=== PATIENT | male | born 1950 | race Caucasian/White ===

== ENCOUNTER → 2017-09-26 | Outpatient (CLI) | payer MEDICARE, OTHER | LOC: M ADAMS 09:15 | DX: R91.8 Other nonspecific abnormal finding of lung field (principal) | CPT/HCPCS: 71046 ==

== ENCOUNTER → 2017-10-10 | Outpatient (CLI) | payer MEDICARE | LOC: M ADAMS 09:27 | DX: R06.02 Shortness of breath (principal); J90 Pleural effusion, not elsewhere classified ==

== ENCOUNTER → 2017-10-10 | Outpatient (CLI) | payer MEDICARE ==
[~2017-10-10] MED LIST: ISOVUE-370 76% 100ML VIAL (Q9967) As Ordered
[2017-10-10 12:23] LABS: ALBUMIN 3.7 GM/DL (3.2-5.2); ALKALINE PHOSPHATASE 104 U/L (45-117); ALT/SGPT 30 U/L (12-78); ANION GAP 9 MEQ/L (8-16); AST/SGOT 16 U/L (7-37); BILIRUBIN,TOTAL 0.5 MG/DL (0.2-1.0); BLOOD UREA NITROGEN 13 MG/DL (7-18); CALCIUM LEVEL 9.1 MG/DL (8.8-10.2); CARBON DIOXIDE LEVEL 29 MEQ/L (21-32); CHLORIDE LEVEL 107 MEQ/L (98-107); CREATININE FOR GFR 0.67 MG/DL (0.70-1.30); FREE T4 0.85 NG/DL (0.76-1.46); GLOMERULAR FILTRATION RATE > 60.0 (>49); GLUCOSE, FASTING 109 MG/DL (70-100); POTASSIUM SERUM 4.1 MEQ/L (3.5-5.1); SODIUM LEVEL 145 MEQ/L (136-145); THYROID STIMULATING HORMONE 0.656 uIU/ML (0.358-3.740); TOTAL PROTEIN 7.4 GM/DL (6.4-8.2)
[2017-10-10 12:51] LABS: BASO % 0.3 % (0.0-1.0); EOS # 0.4 10^3/uL (0.0-0.50); HEMATOCRIT 47.1 % (42.0-52.0); HEMOGLOBIN 15.1 g/dl (13.5-17.5); IMMATURE GRANULOCYTE % 0.3 % (0-3.0); LYMPH # 2.4 10^3/uL (1.5-4.5); LYMPH % 39.1 % (24.0-44.0); MEAN CORPUSCULAR HEMOGLOBIN 30.2 pg (27.0-33.0); MEAN CORPUSCULAR HGB CONC 32.1 g/dl (32.0-36.5); MEAN CORPUSCULAR VOLUME 94.2 fl (80.0-96.0); MONO # 0.4 10^3/uL (0.0-0.8); MONO % 6.8 % (0.0-5.0); NEUTROPHILS % 47.5 % (36.0-66.0); PLATELET COUNT, AUTOMATED 220 10^3/uL (150-450); RED CELL DISTRIBUTION WIDTH 12.6 % (11.5-14.5); WHITE BLOOD COUNT 6.2 10^3/uL (4.0-10.0)
== END ==
LOC: M LAB 10:59
DX: R06.02 Shortness of breath (principal); J90 Pleural effusion, not elsewhere classified
CPT/HCPCS: Q9967

== ENCOUNTER 2017-10-21 22:11 | Inpatient (IN) | payer MEDICARE ==
[2017-10-21] MEDS: NS 1,000 ML IV (23:30)
[2017-10-21 23:31] LABS: BASO % 0.2 % (0.0-1.0); EOS # 0.1 10^3/uL (0.0-0.50); EOS % 0.6 % (0.0-3.0); HEMATOCRIT 43.7 % (42.0-52.0); HEMOGLOBIN 13.9 g/dl (13.5-17.5); IMMATURE GRANULOCYTE % 0.6 % (0-3.0); LYMPH % 15.2 % (24.0-44.0); MEAN CORPUSCULAR HEMOGLOBIN 30.2 pg (27.0-33.0); MEAN CORPUSCULAR HGB CONC 31.8 g/dl (32.0-36.5); MONO # 1.2 10^3/uL (0.0-0.8); NEUTROPHILS # 15.1 10^3/uL (1.8-7.7); NEUTROPHILS % 77.4 % (36.0-66.0); PLATELET COUNT, AUTOMATED 317 10^3/uL (150-450); RED CELL DISTRIBUTION WIDTH 12.5 % (11.5-14.5); WHITE BLOOD COUNT 19.5 10^3/uL (4.0-10.0)
[2017-10-21 23:35] LABS: INR 0.96; PROTHROMBIN TIME 12.9 SECONDS (12.1-14.4)
[2017-10-21 23:43] LABS: ALBUMIN 3.6 GM/DL (3.2-5.2); ALBUMIN/GLOBULIN RATIO 0.92 (1.00-1.93); ALKALINE PHOSPHATASE 92 U/L (45-117); ALT/SGPT 24 U/L (12-78); ANION GAP 7 MEQ/L (8-16); AST/SGOT 13 U/L (7-37); BILIRUBIN,DIRECT 0.1 MG/DL (0.0-0.2); BILIRUBIN,TOTAL 0.5 MG/DL (0.2-1.0); BLOOD UREA NITROGEN 20 MG/DL (7-18); CARBON DIOXIDE LEVEL 26 MEQ/L (21-32); CHLORIDE LEVEL 106 MEQ/L (98-107); CPK CREATINE PHOSPHOKINASE 58 U/L (39-308); CREATININE FOR GFR 1.07 MG/DL (0.70-1.30); GLOMERULAR FILTRATION RATE > 60.0 (>49); GLUCOSE, FASTING 165 MG/DL (70-100); POTASSIUM SERUM 4.1 MEQ/L (3.5-5.1); SODIUM LEVEL 139 MEQ/L (136-145); TOTAL PROTEIN 7.5 GM/DL (6.4-8.2); TROPONIN I < 0.02 NG/ML (< 0.10)
[2017-10-21 23:49] LABS: CK-MB VALUE MASS < 1.0 NG/ML (<3.6); MB/CK RELATIVE INDEX 1.72 (< OR =4); THYROID STIMULATING HORMONE 0.938 uIU/ML (0.358-3.740)
[2017-10-22 00:35] LABS: ABG BASE EXCESS -3.3 (-2.0-2.0); ABG HCO3 21.7 MEQ/L (22.0-26.0); ABG O2 SATURATION 99.5 % (95.0-99.0); ABG PARTIAL PRESSURE CO2 38.8 mmHg (35.0-45.0); ABG PARTIAL PRESSURE O2 196.9 mmHg (75.0-100.0); ABG STANDARD HCO3 21.8 MEQ/L (22.0-26.0); ABG TOTAL CO2 22.9 MEQ/L (23.0-31.0); ABG pH (ARTERIAL) 7.365 UNITS (7.350-7.450)
[2017-10-22 00:38] LABS: LACTIC ACID SEPSIS PROTOCOL 1.9 MMOL/L (0.4-2.0)
[2017-10-22] MEDS ORDERED: ISOVUE-370 76% 100ML VIAL (Q9967) As Ordered (00:56)
[2017-10-22 01:30] LABS: CK-MB VALUE MASS < 1.0 NG/ML (<3.6); CPK CREATINE PHOSPHOKINASE 46 U/L (39-308); MB/CK RELATIVE INDEX 2.17 (< OR =4); TROPONIN I < 0.02 NG/ML (< 0.10)
[2017-10-22 03:57] LABS: BASO % 0.2 % (0.0-1.0); EOS % 0.2 % (0.0-3.0); HEMATOCRIT 41.4 % (42.0-52.0); HEMOGLOBIN 13.2 g/dl (13.5-17.5); IMMATURE GRANULOCYTE % 0.5 % (0-3.0); LYMPH # 2.3 10^3/uL (1.5-4.5); LYMPH % 18.9 % (24.0-44.0); MEAN CORPUSCULAR HEMOGLOBIN 30.2 pg (27.0-33.0); MEAN CORPUSCULAR HGB CONC 31.9 g/dl (32.0-36.5); MEAN CORPUSCULAR VOLUME 94.7 fl (80.0-96.0); MONO # 0.6 10^3/uL (0.0-0.8); MONO % 5.3 % (0.0-5.0); NEUTROPHILS # 9.1 10^3/uL (1.8-7.7); NEUTROPHILS % 74.9 % (36.0-66.0); PLATELET COUNT, AUTOMATED 244 10^3/uL (150-450); RED BLOOD COUNT 4.37 10^6/uL (4.30-6.10); RED CELL DISTRIBUTION WIDTH 12.7 % (11.5-14.5); WHITE BLOOD COUNT 12.2 10^3/uL (4.0-10.0)
[2017-10-22] MEDS ORDERED: fentaNYL 100 MCG/2 ML INJECTION (J3010) As Ordered (04:09)
[2017-10-22] MEDS ORDERED: MIDAZOLAM INJ 2 MG/2 ML VIAL (J2250) As Ordered (04:10)
[2017-10-22] MEDS ORDERED: LIDOCAINE 1% MDV 20ML VIAL As Ordered (04:30)
[2017-10-22] MEDS: LIDOCAINE 1% MDV 20ML VIAL SC (04:30)
[2017-10-22] MEDS: LR 1,000 ML IV (04:50)
[2017-10-22] MEDS: fentaNYL 100 MCG/2 ML INJECTION (J3010) IV (04:54)
[2017-10-22] MEDS: MIDAZOLAM INJ 2 MG/2 ML VIAL (J2250) IV (04:54)
[2017-10-22] MEDS ORDERED: KETOROLAC 30 MG/ML VIAL (J1885) IV (05:00)
[2017-10-22] MEDS ORDERED: ACETAMINOPHEN TAB 650MG DOSE (2X325MG) PO (05:00)
[2017-10-22] MEDS ORDERED: ONDANSETRON 4MG/2ML VIAL (J2405) IV (05:00)
[2017-10-22] MEDS: MORPHINE 4 MG/ML 1ML VIAL/SYRINGE (J2270) IV ×2 (06:45→10:07)
[2017-10-22 07:12] LABS: HEMATOCRIT 40.6 % (42.0-52.0); HEMOGLOBIN 12.9 g/dl (13.5-17.5)
[2017-10-22] MEDS: SENOKOT S TAB PO ×2 (08:46→20:26)
[2017-10-22] MEDS: METOPROLOL SUCC *XL* 25MG TAB (TopROL *XL*) PO (08:46)
[2017-10-22] MEDS: LevoFLOXacin IV 750 MG in APPROPRIATE DILUENT 1 EA IV (10:36)
[2017-10-22] MEDS: PERCOCET 5MG/325MG TAB PO (13:53)
[2017-10-22] MEDS ORDERED: INFLUENZA VIRUS VACCINE HIGH DOSE 0.5 ML SYRINGE (90662) IM (14:30)
[2017-10-22 17:55] LABS: HEMOGLOBIN 11.2 g/dl (13.5-17.5)
[2017-10-23 00:32] LABS: HEMOGLOBIN 10.4 g/dl (13.5-17.5)
[2017-10-23] MEDS: PERCOCET 5MG/325MG TAB PO ×3 (04:15→21:23)
[2017-10-23 04:33] LABS: HEMOGLOBIN 10.8 g/dl (13.5-17.5)
[2017-10-23] MEDS: SENOKOT S TAB PO ×2 (08:38→21:22)
[2017-10-23] MEDS: METOPROLOL SUCC *XL* 25MG TAB (TopROL *XL*) PO (08:39)
[2017-10-23] MEDS ORDERED: NITROGLYCERIN 0.4 MG SUBL TABLET SL (10:45)
[2017-10-23] MEDS: ASPIRIN 81 MG ENTERIC TAB PO (11:07)
[2017-10-23] MEDS: ENOXAPARIN 40 MG/0.4 ML SYRINGE (J1650) SC (11:08)
[2017-10-23] MEDS: LevoFLOXacin IV 750 MG in APPROPRIATE DILUENT 1 EA IV (11:08)
[2017-10-24 05:09] LABS: BASO % 0.2 % (0.0-1.0); EOS # 0.4 10^3/uL (0.0-0.50); EOS % 4.4 % (0.0-3.0); HEMATOCRIT 34.2 % (42.0-52.0); HEMOGLOBIN 11.3 g/dl (13.5-17.5); IMMATURE GRANULOCYTE % 0.2 % (0-3.0); LYMPH # 2.2 10^3/uL (1.5-4.5); LYMPH % 24.3 % (24.0-44.0); MEAN CORPUSCULAR HEMOGLOBIN 30.1 pg (27.0-33.0); MEAN CORPUSCULAR VOLUME 91.2 fl (80.0-96.0); MONO # 0.8 10^3/uL (0.0-0.8); MONO % 8.6 % (0.0-5.0); NEUTROPHILS # 5.7 10^3/uL (1.8-7.7); NEUTROPHILS % 62.3 % (36.0-66.0); PLATELET COUNT, AUTOMATED 207 10^3/uL (150-450); RED BLOOD COUNT 3.75 10^6/uL (4.30-6.10); RED CELL DISTRIBUTION WIDTH 12.3 % (11.5-14.5); WHITE BLOOD COUNT 9.1 10^3/uL (4.0-10.0)
[2017-10-24 05:39] LABS: ANION GAP 4 MEQ/L (8-16); BLOOD UREA NITROGEN 10 MG/DL (7-18); CALCIUM LEVEL 8.7 MG/DL (8.8-10.2); CARBON DIOXIDE LEVEL 28 MEQ/L (21-32); CHLORIDE LEVEL 106 MEQ/L (98-107); CREATININE FOR GFR 0.63 MG/DL (0.70-1.30); GLOMERULAR FILTRATION RATE > 60.0 (>49); GLUCOSE, FASTING 103 MG/DL (70-100); POTASSIUM SERUM 3.8 MEQ/L (3.5-5.1); SODIUM LEVEL 138 MEQ/L (136-145)
[2017-10-24] MEDS: ASPIRIN 81 MG ENTERIC TAB PO (09:41)
[2017-10-24] MEDS: SENOKOT S TAB PO (09:41)
[2017-10-24] MEDS: METOPROLOL SUCC *XL* 25MG TAB (TopROL *XL*) PO (09:42)
[2017-10-24] MEDS: ENOXAPARIN 40 MG/0.4 ML SYRINGE (J1650) SC (09:42)
[2017-10-24] MEDS: LevoFLOXacin IV 750 MG in APPROPRIATE DILUENT 1 EA IV (10:46)
== END 2017-10-24 17:23 | disposition home or self-care (01) | DRG 920 ==
LOC: M ED INP 10-22 04:50 → M ICU 10-22 06:16 → M ED 22:11
PROC: 0W9B30Z Drainage of Left Pleural Cavity with Drainage Device, Percutaneous Approach (ICD-10-PCS; principal; 2017-10-22)
DX: J95.830 Postprocedural hemorrhage of a respiratory system organ or structure following a respiratory system procedure (principal); J98.11 Atelectasis; J90 Pleural effusion, not elsewhere classified; I25.10 Atherosclerotic heart disease of native coronary artery without angina pectoris; E78.00 Pure hypercholesterolemia, unspecified; Z95.9 Presence of cardiac and vascular implant and graft, unspecified; Z79.82 Long term (current) use of aspirin; Z79.899 Other long term (current) drug therapy; I25.2 Old myocardial infarction; Z88.0 Allergy status to penicillin

== ENCOUNTER → 2017-10-21 | Outpatient (CLI) | payer MEDICARE ==
[2017-10-21 08:26] LABS: PLATELET COUNT, AUTOMATED 232 10^3/uL (150-450)
[2017-10-21 08:38] LABS: INR 0.95; PROTHROMBIN TIME 12.8 SECONDS (12.1-14.4)
[2017-10-21 08:39] LABS: PARTIAL THROMBOPLASTIN TIME 31.8 SECONDS (25.4-37.6)
[2017-10-21 09:36] LABS: PH BODY FLUID 7.646 UNITS (NOT ESTABLISHED); SOURCE, BODY FLUID pH PLEURAL
[2017-10-21 09:59] LABS: BF MONONUCLEAR CELL % 77.9 % (0-0); BF POLYMORPHONUCLEAR CELL % 22.1 % (0-0); RBC BODY FLUID 26 10^3/uL (<2); WBC BODY FLUID 1862 /uL (0-10)
[2017-10-21 10:01] LABS: AMYLASE, BODY FLUID 25 U/L (NOT ESTABLISHED); LDH, BODY FLUID 198 U/L (NOT ESTABLISHED); SOURCE, BODY FLUID AMYLASE PLEURAL; SOURCE, BODY FLUID GLUCOSE PLEURAL; SOURCE, BODY FLUID LDH PLEURAL; SOURCE, BODY FLUID TOT PROTEIN PLEURAL; TOTAL PROTEIN, BODY FLUID 5.7 G/DL (NOT ESTABLISHED)
[2017-10-21 10:09] LABS: APPEARANCE, BODY FLUID HAZY (CLEAR); BF DIFF IF INDICATED? YES (NO); PLEURAL FL COLOR ORANGE (COLORLESS); SOURCE, BODY FLUID PLEURAL
== END ==
LOC: M RADPRO 07:59
DX: J90 Pleural effusion, not elsewhere classified (principal); Z79.82 Long term (current) use of aspirin; Z79.899 Other long term (current) drug therapy; Z88.0 Allergy status to penicillin
CPT/HCPCS: 32555

== ENCOUNTER → 2017-10-27 | Outpatient (CLI) | payer MEDICARE | LOC: M SMT 10:23 | DX: S22.42XA Multiple fractures of ribs, left side, initial encounter for closed fracture (principal); J94.2 Hemothorax | CPT/HCPCS: 71046 ==

== ENCOUNTER → 2017-11-17 | Outpatient (CLI) | payer MEDICARE | LOC: M SMT 08:27 | DX: J94.2 Hemothorax (principal) | CPT/HCPCS: 71046 ==

== ENCOUNTER → 2017-11-28 | Outpatient (CLI) | payer MEDICARE | LOC: M RAD 07:29 | DX: I25.10 Atherosclerotic heart disease of native coronary artery without angina pectoris (principal); K76.0 Fatty (change of) liver, not elsewhere classified; K82.8 Other specified diseases of gallbladder; N28.1 Cyst of kidney, acquired | CPT/HCPCS: 76705 ==

== ENCOUNTER → 2017-12-21 | Outpatient (CLI) | payer MEDICARE | LOC: M RAD 08:47 | DX: K82.8 Other specified diseases of gallbladder (principal); I10 Essential (primary) hypertension; E78.5 Hyperlipidemia, unspecified; I25.10 Atherosclerotic heart disease of native coronary artery without angina pectoris | CPT/HCPCS: Q9967 ==

== ENCOUNTER → 2017-12-26 | Outpatient (CLI) | payer MEDICARE | LOC: M SMT 08:09 | DX: J94.2 Hemothorax (principal); R91.8 Other nonspecific abnormal finding of lung field | CPT/HCPCS: 71046 ==

== ENCOUNTER → 2018-03-28 | Outpatient (REF) | payer MEDICARE ==
[~2018-03-28] MED LIST changes: +ASPI1TAB PO; +CLOP75TA2 PO; +GLUC1CAP9 PO; -ISOVUE-370 76% 100ML VIAL (Q9967) As Ordered; +METO1TAB32 PO; +NITR4TASL SL; +PERCOCET PO; +RAMI1CAP22 PO; +TYLE500T78 PO
[2018-03-28 15:24] LABS: C REACTIVE PROTEIN QUANTITATIV < 0.30 MG/DL (0.00-0.30); RHEUMATOID FACTOR QUANT < 10.0 IU/ML (<15.0)
[2018-03-30 00:06] LABS: ANA (HEP2) Negative (.); Lyme Disease IgG/IgM Antibodie <0.91 ISR (0.00-0.90); Lyme Disease IgM Ab Quantitati <0.80 index (0.00-0.79)
== END ==
LOC: M SFHCADAM 08:43
PROVIDERS: ATTEND Physician Assistant Medical
DX: M25.50 Pain in unspecified joint (principal)
CPT/HCPCS: 85652; 86038; 86140; 86431; 86617; G0463

== ENCOUNTER 2018-06-27 08:08 | Day surgery (SDC) | payer MEDICARE ==
[~2018-06-27] VITALS: Ht 175.3 cm; Wt 93.0 kg
[2018-06-27] MEDS: NS 1,000 ML IV ONE (06:15)
[~2018-06-27 08:08] MED LIST changes: -ASPI1TAB PO; +ASPI81TA26 PO; +CIDA500T2 PO; +FLON1SPR; +MELA1LIQ2 PO
[2018-06-27] MEDS ORDERED: LIDOCAINE 2% INJ 100 MG/5 ML SDV (FOR ANES.) As Ordered ONE (08:28)
[2018-06-27] MEDS ORDERED: PROPOFOL 200 MG/20 ML VIAL As Ordered ONE ×2 (08:28→10:39)
--- NOTE | 2018-06-27 10:48 | ROOR ---
Patient Name: Jose Gonzalez Procedure Date: 06/27/2018 10:25 AM Date of : 1950 Age: 67 Room: [facility] Gender: Male Note Status: Finalized Procedure: Colonoscopy Indications: High risk colon cancer surveillance: Personal history of colonic polyps Providers: Kenney STACK MD Referring MD: JENAE Friedman Requesting Provider: Medicines: Monitored Anesthesia Care Complications: No immediate complications. Procedure: Pre-Anesthesia Assessment: - The heart rate, respiratory rate, oxygen saturations, blood pressure, adequacy of pulmonary ventilation, and response to care were monitored throughout the procedure. The Colonoscope was introduced through the anus and advanced to the terminal ileum, with identification of the appendiceal orifice and IC valve. The colonoscopy was performed without difficulty. The patient tolerated the procedure well. The quality of the bowel preparation was good. Findings: The perianal and digital rectal examinations were normal. (Exam: Complete, Prep: Good or Excellent.) A 4 mm polyp was found in the splenic flexure. The polyp was sessile. The polyp was removed with a cold snare. Resection and retrieval were complete. Mild sigmoid diverticulosis and small internal hemorrhoids. The exam was otherwise without abnormality on direct and retroflexion views. Retroflexion in the right colon was performed. Impression: - (Exam: Complete, Prep: Good or Excellent.) - One 4 mm polyp at the splenic flexure, removed with a cold snare. Resected and retrieved. - Mild sigmoid diverticulosis and small internal hemorrhoids. - The colon examination was otherwise normal on direct and retroflexion views. Recommendation: - Repeat colonoscopy in 5 years for surveillance. Kenney Stack MD Kenney STACK MD 06/27/2018 10:47:55 AM Electronically signed by Kenney STACK MD Number of Addenda: 0 Note Initiated On: 06/27/2018 10:25 AM Estimated Blood Loss: Estimated blood loss: none.
[2018-06-27 11:10] VITALS: BP 125/95
== END 2018-06-27 11:26 | disposition home or self-care (01) ==
LOC: M OPP 08:08
PROVIDERS: ATTEND Internal Medicine Gastroenterology
DX: D12.3 Benign neoplasm of transverse colon (principal); K57.30 Diverticulosis of large intestine without perforation or abscess without bleeding; K64.8 Other hemorrhoids; Z86.010 Personal history of colon polyps

== ENCOUNTER 2018-07-18 05:55 | Day surgery (SDC) | payer MEDICARE ==
[~2018-07-18] VITALS: Ht 170.2 cm; Wt 94.4 kg
[2018-07-18] MEDS ORDERED: ceFAZolin SOD 1 GM in D5W MINI-BAG PLUS 50 ML IV ONE (06:00)
[2018-07-18] MEDS ORDERED: LR 1,000 ML IV ONE (06:00)
[2018-07-18] MEDS ORDERED: METOPROLOL SUCC *XL* 25MG TAB (TopROL *XL*) As Ordered ONE (07:00)
[2018-07-18] MEDS ORDERED: PROPOFOL 200 MG/20 ML VIAL As Ordered ONE ×2 (07:07→07:08)
[2018-07-18] MEDS ORDERED: LIDOCAINE 2% INJ 100 MG/5 ML SDV (FOR ANES.) As Ordered ONE (07:08)
[2018-07-18] MEDS ORDERED: dexameTHASONE 4 MG/ML 1ML VIAL (J1100) As Ordered ONE (07:08)
[2018-07-18] MEDS ORDERED: ONDANSETRON 4MG/2ML VIAL (J2405) As Ordered ONE (07:08)
[2018-07-18] MEDS ORDERED: ROCURONIUM BROMIDE 50 MG/5 ML VIAL As Ordered ONE ×2 (07:08→08:07)
[2018-07-18] MEDS ORDERED: MIDAZOLAM INJ 2 MG/2 ML VIAL (J2250) As Ordered ONE (07:09)
[2018-07-18] MEDS ORDERED: KETOROLAC 60 MG/2 ML VIAL (J1885) As Ordered ONE (07:09)
[2018-07-18] MEDS ORDERED: ACETAMINOPHEN 1000MG 100ML IV BTL (OFIRMEV) (J0131 PER 10MG) As Ordered ONE (07:09)
[2018-07-18] MEDS ORDERED: fentaNYL 100 MCG/2 ML INJECTION (J3010) As Ordered ONE (07:10)
[2018-07-18] MEDS ORDERED: METOPROLOL SUCC *XL* 25MG TAB (TopROL *XL*) PO ONE (07:15)
[2018-07-18 07:16] VITALS: BP 135/80
[2018-07-18] MEDS ORDERED: SUGAMMADEX SODIUM 500 MG/5 ML VIAL (BRIDION) As Ordered ONE (07:18)
[2018-07-18] MEDS: BUPIVACAINE/EPIN 0.25% 30 ML VIAL As Ordered ONE (08:50)
--- NOTE | 2018-07-18 09:12 | RO ---
DATE OF PROCEDURE: 07/18/2018 PREPROCEDURE DIAGNOSIS: Right inguinal hernia. POSTOPERATIVE DIAGNOSIS: Right inguinal hernia (direct and indirect). PROCEDURE: Robotic-assisted right inguinal hernia repair with ProGrip mesh. SURGEON: Kevin Frank MD TRANSMISSION AND COORDINATION ENGINEER: Autumn Lebron NP (provided retraction, instrument exchange, trocar placement, mesh placement and abdominal wall closure). ANESTHESIA: General endotracheal anesthesia. ESTIMATED BLOOD LOSS: Minimal. FLUIDS: Crystalloid. DESCRIPTION OF PROCEDURE: The patient was brought to the operating room and was given general anesthesia. After adequate anesthesia was established, the patient was prepped and draped in sterile fashion. Next, a supraumbilical incision was made with skin knife. Blunt dissection was carried down to fascia. Veress needle placed into the abdominal cavity and insufflated to 15 mm of pressure. Dilating 8 mm trocar was placed at this time under direct visualization into the abdominal cavity and two lateral 8 mm trocars were placed under direct visualization. The patient was placed in steep Trendelenburg position and after placing a steep Trendelenburg position, the robot was docked and the monopolar cut scissors were used to take down very attenuated, thin peritoneum on the right-hand side. Essentially this was mobilized quite nicely off the cord structures. The direct hernia was able to be mobilized quite nicely off Obie's and off the backside of pubis. The vessels were well visualized, as well as the cord structures with the vas diving deep into the pelvis. Once this was cleared, a ProGrip mesh was cut to the appropriate size, placed in the preperitoneal space and pressed into position. It fit quite nicely across the Obie's pubis, across the vessels, etc. and after this was pressed into position quite nicely, the peritoneum was closed using a running V-Loc suture. All instruments removed under direct visualization, and trocar sites were closed with 4-0 Vicryl. Steri-Strips and dry sterile dressing were applied. The patient was awakened, extubated, brought to recovery room awake, alert, hemodynamically stable. Sponge and needle counts correct times two.
[2018-07-18] MEDS ORDERED: PERCOCET 5MG/325MG TAB PO PRN (09:45)
[2018-07-18] MEDS ORDERED: fentaNYL 100 MCG/2 ML INJECTION (J3010) IV PRN (09:45)
[2018-07-18] MEDS ORDERED: HYDROMORPHONE HCL 0.5 MG/ 0.5 ML SYRINGE (J1170 PER 1) IV PRN (09:45)
[2018-07-18] MEDS ORDERED: LR 1,000 ML IV SCH (09:45)
[2018-07-18] MEDS ORDERED: ONDANSETRON 4MG/2ML VIAL (J2405) IV PRN ×2 (09:45→10:00)
[2018-07-18] MEDS ORDERED: NS 1,000 ML IV SCH (10:00)
[2018-07-18] MEDS ORDERED: NORCO, ANEXSIA 5/325MG TABLET (HYDROcodone/ACETAMINOPHEN) PO PRN (10:00)
[2018-07-18 12:42] VITALS: BP 125/78
[2018-07-18] MEDS ORDERED: KETOROLAC 30 MG/ML VIAL (J1885) IV SCH (15:00)
== END 2018-07-18 12:52 | disposition home or self-care (01) ==
LOC: M SDC 05:55
PROVIDERS: ATTEND Surgery
DX: K40.90 Unilateral inguinal hernia, without obstruction or gangrene, not specified as recurrent (principal); I25.2 Old myocardial infarction; E78.5 Hyperlipidemia, unspecified; Z79.899 Other long term (current) drug therapy; Z98.61 Coronary angioplasty status; Z79.01 Long term (current) use of anticoagulants; Z87.891 Personal history of nicotine dependence; Z79.82 Long term (current) use of aspirin
CPT/HCPCS: 49650; C1781; J0131; J0690; J1100; J1885; J2250; J2405; J3010

== ENCOUNTER → 2018-10-05 | Outpatient (REF) | payer MEDICARE ==
[2018-10-05 19:23] LABS: HEMATOCRIT 46.8 % (42.0-52.0); HEMOGLOBIN 15.3 g/dl (13.5-17.5); MEAN CORPUSCULAR HEMOGLOBIN 31.2 pg (27.0-33.0); MEAN CORPUSCULAR HGB CONC 32.7 g/dl (32.0-36.5); MEAN CORPUSCULAR VOLUME 95.5 fl (80.0-96.0); PLATELET COUNT, AUTOMATED 224 10^3/uL (150-450); WHITE BLOOD COUNT 8.6 10^3/uL (4.0-10.0)
== END ==
LOC: M SFHCADAM 13:50
PROVIDERS: ATTEND Physician Assistant Medical
DX: T14.8XXA Other injury of unspecified body region, initial encounter (principal); I25.10 Atherosclerotic heart disease of native coronary artery without angina pectoris
CPT/HCPCS: 85027; G0463

== ENCOUNTER → 2019-05-08 | Outpatient (CLI) | payer MEDICARE ==
--- NOTE | 2019-05-08 08:45 | REP ---
THORACIC SPINE SERIES: THREE VIEWS. HISTORY: Traumatic compression. Comparison is made with images from CT study of the chest December 21, 2017. Findings: Thoracic vertebral body heights are preserved. Alignment is normal. No fracture or collapse is seen. There is moderate degenerative disc disease with discogenic spurring along the right lateral and anterior aspects of the proximal and mid thoracic spine and the left lateral and right lateral aspects of the distal thoracic spine. Swimmer's lateral view shows no additional abnormality. No paravertebral soft-tissue mass is seen to suggest hematoma or swelling. IMPRESSION: Degenerative disc disease moderate in extent. Unchanged from comparison CT study December 21, 2017. No fracture or collapse visible. Electronically Signed by Darrius Phillips MD 05/08/2019 09:26 A
== END ==
LOC: M ADAMS 08:03
PROVIDERS: ATTEND Physician Assistant Medical
DX: M51.34 Other intervertebral disc degeneration, thoracic region (principal); Z87.81 Personal history of (healed) traumatic fracture; Z09 Encounter for follow-up examination after completed treatment for conditions other than malignant neoplasm

== ENCOUNTER → 2019-09-10 | Outpatient (CLI) | payer MEDICARE ==
--- NOTE | 2019-09-10 16:12 | REP ---
Clinical: Left knee pain. Technique: AP, lateral, bilateral oblique and sunrise views of the left knee. Findings: Age-related osteopenia and degenerative changes noted. No acute fracture dislocation. Fraying along the anterior patellar margin and calcification at the quadriceps insertion suggest patellar tendinopathy. No effusion. Impression: Age-related degenerative changes as noted above. Electronically Signed by Archie Weber MD 09/10/2019 04:04 P
== END ==
LOC: M ADAMS 11:14
PROVIDERS: ATTEND Physician Assistant Medical
DX: M17.12 Unilateral primary osteoarthritis, left knee (principal)

== ENCOUNTER → 2019-09-10 | Outpatient (REF) | payer MEDICARE ==
[2019-09-12 18:08] LABS: Lyme Disease IgG/IgM Antibodie <0.91 ISR (0.00-0.90); Lyme Disease IgM Ab Quantitati <0.80 index (0.00-0.79)
== END ==
LOC: M SFHCADAM 10:58
PROVIDERS: ATTEND Physician Assistant Medical
DX: M25.562 Pain in left knee (principal)

== ENCOUNTER → 2021-12-03 | Outpatient (REF) | payer MEDICARE ==
[2021-12-03 14:49] LABS: CREATININE, URINE 95.9 MG/DL; MALB URINE SIEMENS 7.5 MG/L; MAU/CREAT RATIO 7.8 MCG/MG (0.0-30.0)
== END ==
LOC: M SFHCADAM 08:55
PROVIDERS: ATTEND Physician Assistant Medical
DX: R73.01 Impaired fasting glucose (principal)

== ENCOUNTER → 2021-12-03 | Outpatient (CLI) | payer MEDICARE | LOC: M ADAMS 09:10 | PROVIDERS: ATTEND Physician Assistant Medical | DX: M25.511 Pain in right shoulder (principal); M19.041 Primary osteoarthritis, right hand ==

== ENCOUNTER 2022-01-25 10:17 | Observation (INO) | payer MEDICARE ==
[~2022-01-25] VITALS: Ht 175.3 cm; Wt 93.6 kg
[~2022-01-25 10:17] MED LIST changes: -FLON1SPR; +FLON1SPR NARES
[2022-01-25] MEDS ORDERED: REPA140I2 PO (10:26)
[2022-01-25] MEDS ORDERED: NS 500 ML IV ONE (10:35)
[2022-01-25 11:45] LABS: BASO % 0.3 % (0.0-1.0); EOS # 0.1 10^3/uL (0.0-0.5); EOS % 1.9 % (0.0-3.0); HEMATOCRIT 43.4 % (42.0-52.0); HEMOGLOBIN 14.1 g/dl (13.5-17.5); LYMPH # 2.4 10^3/uL (1.5-5.0); LYMPH % 34.7 % (24.0-44.0); MEAN CORPUSCULAR HEMOGLOBIN 30.9 pg (27.0-33.0); MEAN CORPUSCULAR HGB CONC 32.5 g/dl (32.0-36.5); MEAN CORPUSCULAR VOLUME 95.2 fl (80.0-96.0); MONO # 0.4 10^3/uL (0.0-0.8); MONO % 6.4 % (2.0-8.0); NEUTROPHILS # 3.9 10^3/uL (1.5-8.5); NEUTROPHILS % 56.4 % (36.0-66.0); PLATELET COUNT, AUTOMATED 214 10^3/uL (150-450); RED BLOOD COUNT 4.56 10^6/uL (4.30-6.10); WHITE BLOOD COUNT 6.8 10^3/uL (4.0-10.0)
[2022-01-25 11:54] LABS: CK-MB VALUE MASS < 1.0 NG/ML (<3.6)
[2022-01-25 11:55] LABS: LIPASE 28 U/L (12-53)
[2022-01-25 11:56] LABS: AMYLASE 39 U/L (30-118)
[2022-01-25 11:57] LABS: ALBUMIN 3.8 G/DL (3.2-5.2); ALKALINE PHOSPHATASE 77 U/L (46-116); ALT/SGPT 34 U/L (7.0-40); AST/SGOT 24 U/L (<34); BILIRUBIN,DIRECT 0.1 MG/DL (<0.4); BILIRUBIN,TOTAL 0.4 MG/DL (0.3-1.2); INR 0.93; PROTHROMBIN TIME 12.7 SECONDS (12.5-14.5); TOTAL PROTEIN 6.7 G/DL (5.7-8.2)
[2022-01-25 11:58] LABS: PARTIAL THROMBOPLASTIN TIME 28.6 SECONDS (24.8-34.2)
[2022-01-25 12:02] LABS: CPK CREATINE PHOSPHOKINASE 59 U/L (46-171); MB/CK RELATIVE INDEX 1.69 (< OR =4)
[2022-01-25 12:04] LABS: RSV AMPLIFICATION NEGATIVE (NEGATIVE)
[2022-01-25] MEDS ORDERED: ISOVUE-370 76% 100ML VIAL As Ordered ONE (12:17)
[2022-01-25] MEDS ORDERED: PANTOPRAZOLE 40MG VIAL IV ONE ×2 (12:20→12:45)
[2022-01-25] MEDS ORDERED: RA M10TA PO (13:02)
[2022-01-25] MEDS ORDERED: HOME MED LIST COMPLETE! XX SCH (13:05)
[2022-01-25] MEDS ORDERED: NITROGLYCERIN 0.4MG SUBL TABLET SL PRN (14:00)
[2022-01-25] MEDS ORDERED: FLUTICASONE PROP 0.05% NASAL SPRAY 16 GM (FLONASE) NARES PRN (14:00)
[2022-01-25 15:00] VITALS: BP 125/75
[2022-01-25 16:18] LABS: HEMATOCRIT 42.8 % (42.0-52.0); HEMOGLOBIN 13.7 g/dl (13.5-17.5)
[2022-01-25 21:05] VITALS: BP 125/73
[2022-01-26 01:20] LABS: HEMATOCRIT 40.8 % (42.0-52.0); HEMOGLOBIN 13.5 g/dl (13.5-17.5)
[2022-01-26 05:45] VITALS: BP 122/72
[2022-01-26 06:10] LABS: HEMOGLOBIN 13.6 g/dl (13.5-17.5); MEAN CORPUSCULAR HEMOGLOBIN 30.9 pg (27.0-33.0); MEAN CORPUSCULAR HGB CONC 32.4 g/dl (32.0-36.5); MEAN CORPUSCULAR VOLUME 95.5 fl (80.0-96.0); PLATELET COUNT, AUTOMATED 202 10^3/uL (150-450); WHITE BLOOD COUNT 7.6 10^3/uL (4.0-10.0)
[2022-01-26 06:49] LABS: BLOOD UREA NITROGEN 13 MG/DL (9-23); CALCIUM LEVEL 8.7 MG/DL (8.3-10.6); CARBON DIOXIDE LEVEL 26 MMOL/L (20-31); CHLORIDE LEVEL 104 MMOL/L (98-107); CREATININE FOR GFR 0.67 MG/DL (0.70-1.30); GLOMERULAR FILTRATION RATE > 60.0 (>49); GLUCOSE, FASTING 110 MG/DL (74-106); POTASSIUM SERUM 3.9 MMOL/L (3.5-5.1); SODIUM LEVEL 140 MMOL/L (136-145)
[2022-01-26 08:22] LABS: HEMATOCRIT 43.5 % (42.0-52.0); HEMOGLOBIN 14.1 g/dl (13.5-17.5)
[2022-01-26] MEDS ORDERED: PANTOPRAZOLE 40MG VIAL IV SCH (09:00)
[2022-01-26] MEDS ORDERED: METOPROLOL SUCC *XL* 25MG TAB (TopROL *XL*) PO SCH (09:00)
[2022-01-26 09:14] VITALS: BP 122/72
[2022-01-26] MEDS ORDERED: PANT40TA29 PO (15:59)
[2022-01-26 16:26] VITALS: BP 123/76
[2022-01-26 16:45] LABS: HEMATOCRIT 43.1 % (42.0-52.0); HEMOGLOBIN 13.8 g/dl (13.5-17.5)
== END 2022-01-26 17:48 | disposition home or self-care (01) ==
LOC: M ED 10:17 → M ED INP 10:18 → ENRESERV 14:16 → M MSPAV 15:11
PROVIDERS: ADMIT Internal Medicine; ATTEND Internal Medicine
DX: K92.2 Gastrointestinal hemorrhage, unspecified (principal); K92.1 Melena; K31.7 Polyp of stomach and duodenum; T39.015A Adverse effect of aspirin, initial encounter; I25.10 Atherosclerotic heart disease of native coronary artery without angina pectoris; K29.71 Gastritis, unspecified, with bleeding; R19.01 Right upper quadrant abdominal swelling, mass and lump; Z88.0 Allergy status to penicillin; Z79.82 Long term (current) use of aspirin; Z79.02 Long term (current) use of antithrombotics/antiplatelets; Z98.61 Coronary angioplasty status
CPT/HCPCS: 36415; 43239; 71045; 74177; 80047; 80048; 80076; 82150; 82550; 82553; 83605; 83690; 84484; 85014; 85018; 85025; 85027; 85610; 85730; 86850; 86900; 86901; 87040; 87631; 88305; 93005; 93041; 96374; 96375; 96376; 99285; C9113; G0378; Q9967

== ENCOUNTER → 2022-02-03 | Outpatient (CLI) | payer MEDICARE ==
[~2022-02-03] MED LIST changes: +PANT40TA29 PO; +RA M10TA PO; +REPA140I2 PO
[2022-02-03 14:22] LABS: HEMOGLOBIN 14.1 g/dl (13.5-17.5); MEAN CORPUSCULAR HEMOGLOBIN 31.4 pg (27.0-33.0); PLATELET COUNT, AUTOMATED 248 10^3/uL (150-450); RED BLOOD COUNT 4.49 10^6/uL (4.30-6.10); WHITE BLOOD COUNT 7.7 10^3/uL (4.0-10.0)
== END ==
LOC: M LABDRWAD 10:40
PROVIDERS: ATTEND Physician Assistant Medical
DX: K92.1 Melena (principal); K31.7 Polyp of stomach and duodenum

== ENCOUNTER → 2022-04-12 | Outpatient (CLI) | payer MEDICARE ==
[2022-04-12 20:07] LABS: BASO % 0.3 % (0.0-1.0); EOS # 0.2 10^3/uL (0.0-0.5); EOS % 1.8 % (0.0-3.0); HEMATOCRIT 46.8 % (42.0-52.0); HEMOGLOBIN 14.7 g/dl (13.5-17.5); LYMPH # 2.9 10^3/uL (1.5-5.0); MEAN CORPUSCULAR HEMOGLOBIN 30.1 pg (27.0-33.0); MEAN CORPUSCULAR HGB CONC 31.4 g/dl (32.0-36.5); MEAN CORPUSCULAR VOLUME 95.9 fl (80.0-96.0); MONO # 0.6 10^3/uL (0.0-0.8); MONO % 5.8 % (2.0-8.0); NEUTROPHILS # 6.4 10^3/uL (1.5-8.5); NEUTROPHILS % 62.6 % (36.0-66.0); PLATELET COUNT, AUTOMATED 238 10^3/uL (150-450); RED BLOOD COUNT 4.88 10^6/uL (4.30-6.10); WHITE BLOOD COUNT 10.2 10^3/uL (4.0-10.0)
[2022-04-12 20:37] LABS: HEMOGLOBIN A1c 5.9 % (4.0-6.0); THYROID STIMULATING HORMONE 1.013 uIU/ML (0.55-4.78)
[2022-04-12 20:39] LABS: ALBUMIN 3.9 G/DL (3.2-5.2); ALKALINE PHOSPHATASE 131 U/L (46-116); ALT/SGPT 32 U/L (7.0-40); AST/SGOT 22 U/L (<34); BILIRUBIN,TOTAL 0.4 MG/DL (0.3-1.2); BLOOD UREA NITROGEN 18 MG/DL (9-23); CALCIUM LEVEL 9.2 MG/DL (8.3-10.6); CARBON DIOXIDE LEVEL 29 MMOL/L (20-31); CHLORIDE LEVEL 105 MMOL/L (98-107); CHOLESTEROL LEVEL 144 MG/DL (<200); CHOLESTEROL RISK RATIO 2.97 (<5); CREATININE FOR GFR 0.68 MG/DL (0.70-1.30); GLOMERULAR FILTRATION RATE > 60.0 (>49); GLUCOSE, FASTING 94 MG/DL (74-106); HDL CHOLESTEROL 48.4 MG/DL (>40); NON-HDL-C 96 MG/DL; POTASSIUM SERUM 4.1 MMOL/L (3.5-5.1); SODIUM LEVEL 140 MMOL/L (136-145); TRIGLYCERIDES LEVEL 118 MG/DL (<150)
[2022-04-13 10:41] LABS: CREATININE, URINE 110.1 MG/DL; MALB URINE SIEMENS < 3.0 MG/DL; MAU/CREAT RATIO 2.7 MCG/MG (0.0-30.0)
== END ==
LOC: M WUC 15:03
PROVIDERS: ATTEND Physician Assistant Medical
DX: I25.10 Atherosclerotic heart disease of native coronary artery without angina pectoris (principal); E78.2 Mixed hyperlipidemia; K76.0 Fatty (change of) liver, not elsewhere classified; R73.01 Impaired fasting glucose

== ENCOUNTER → 2022-04-14 | Outpatient (CLI) | payer MEDICARE | LOC: M LABSMTC 09:38 | PROVIDERS: ATTEND Anesthesiology | DX: Z01.812 Encounter for preprocedural laboratory examination (principal); Z11.52 Encounter for screening for COVID-19 ==

== ENCOUNTER → 2022-04-14 | Outpatient (CLI) | payer MEDICARE ==
[~2022-04-14] MED LIST changes: +PROHANCE 279.3MG/ML 15ML VIAL As Ordered ONE; +PROHANCE 279.3MG/ML 5ML VIAL As Ordered ONE
== END ==
LOC: M RAD 10:17
PROVIDERS: ATTEND Physician Assistant Medical
DX: Z01.812 Encounter for preprocedural laboratory examination (principal); N28.89 Other specified disorders of kidney and ureter; Z11.52 Encounter for screening for COVID-19
CPT/HCPCS: 74183; 87635; A9576

== ENCOUNTER 2022-04-19 06:50 | Day surgery (SDC) | payer MEDICARE ==
[~2022-04-19] VITALS: Ht 175.3 cm; Wt 94.1 kg
[~2022-04-19 06:50] MED LIST changes: +NS 1,000 ML IV ONE; -PROHANCE 279.3MG/ML 15ML VIAL As Ordered ONE; -PROHANCE 279.3MG/ML 5ML VIAL As Ordered ONE
[2022-04-19] MEDS ORDERED: LIDOCAINE 2% 100MG/5ML SDV (FOR ANES.) As Ordered ONE (08:46)
[2022-04-19] MEDS ORDERED: propofoL 200 MG/20 ML VIAL As Ordered ONE (08:46)
[2022-04-19 08:55] VITALS: BP 129/71
== END 2022-04-19 09:03 | disposition home or self-care (01) ==
LOC: M OPP 06:50
PROVIDERS: ATTEND Internal Medicine Gastroenterology
DX: K63.5 Polyp of colon (principal); K57.30 Diverticulosis of large intestine without perforation or abscess without bleeding; K64.8 Other hemorrhoids; K92.1 Melena; I25.2 Old myocardial infarction; E78.00 Pure hypercholesterolemia, unspecified; Z95.5 Presence of coronary angioplasty implant and graft; Z79.82 Long term (current) use of aspirin; Z79.899 Other long term (current) drug therapy; Z87.891 Personal history of nicotine dependence; Z87.19 Personal history of other diseases of the digestive system; Z87.442 Personal history of urinary calculi

== ENCOUNTER → 2022-04-20 | Outpatient (REF) | payer MEDICARE ==
[~2022-04-20] MED LIST changes: -NS 1,000 ML IV ONE
[2022-04-20 13:41] LABS: APPEARANCE, URINE HAZY (CLEAR); BACTERIA, URINE AUTO NEGATIVE (NEGATIVE); BILIRUBIN, URINE AUTO NEGATIVE (NEGATIVE); BLOOD, URINE BLOOD NEGATIVE (NEGATIVE); COLOR, URINE YELLOW (YELLOW); GLUCOSE, URINE (UA) AUTO NEGATIVE (NEGATIVE); KETONE, URINE AUTO NEGATIVE (NEGATIVE); LEUKOCYTE ESTERASE, URINE AUTO NEGATIVE (NEGATIVE); MUCUS, URINE SMALL (NEGATIVE); NITRITE, URINE AUTO NEGATIVE (NEGATIVE); PROTEIN, URINE AUTO NEGATIVE (NEGATIVE); RBC, URINE AUTO 0 /HPF (0-3); SPECIFIC GRAVITY URINE AUTO 1.016 (1.002-1.035); SQUAMOUS EPITHELIAL CELL UR AU 0 /HPF (0-6); UROBILINOGEN, URINE AUTO 0.2 mg/dL (0.0-2.0); WBC, URINE AUTO 2 /HPF (0-3)
== END ==
LOC: M SMT 13:02
PROVIDERS: ATTEND Urology
DX: N28.9 Disorder of kidney and ureter, unspecified (principal)

== ENCOUNTER → 2022-05-24 | Outpatient (CLI) | payer MEDICARE | LOC: M ADAMS 07:43 | PROVIDERS: ATTEND Physician Assistant Medical | DX: R05.9 Cough, unspecified (principal) ==

== ENCOUNTER → 2022-06-15 | Outpatient (CLI) | payer MEDICARE | LOC: M ADAMS 11:13 | PROVIDERS: ATTEND Physician Assistant Medical | DX: I50.9 Heart failure, unspecified (principal); R50.9 Fever, unspecified; M79.10 Myalgia, unspecified site; R05.1 Acute cough ==

== ENCOUNTER → 2022-06-17 | Outpatient (CLI) | payer MEDICARE | LOC: M ADAMS 10:31 | PROVIDERS: ATTEND Physician Assistant Medical | DX: I50.9 Heart failure, unspecified (principal); J90 Pleural effusion, not elsewhere classified; R05.1 Acute cough ==

== ENCOUNTER → 2022-06-22 | Outpatient (CLI) | payer MEDICARE | LOC: M ADAMS 14:05 | PROVIDERS: ATTEND Physician Assistant Medical | DX: R05.1 Acute cough (principal); R91.8 Other nonspecific abnormal finding of lung field; M48.14 Ankylosing hyperostosis [Forestier], thoracic region ==

== ENCOUNTER → 2022-08-05 | Outpatient (CLI) | payer MEDICARE | LOC: M ADAMS 07:36 | PROVIDERS: ATTEND Physician Assistant Medical | DX: J12.9 Viral pneumonia, unspecified (principal) ==

== ENCOUNTER → 2022-11-03 | Outpatient (REF) | payer MEDICARE ==
[2022-11-03 16:10] LABS: BLOOD UREA NITROGEN 20 MG/DL (9-23); CALCIUM LEVEL 9.5 MG/DL (8.3-10.6); CARBON DIOXIDE LEVEL 28 MMOL/L (20-31); CHLORIDE LEVEL 108 MMOL/L (98-107); CREATININE FOR GFR 0.69 MG/DL (0.70-1.30); GLOMERULAR FILTRATION RATE > 60.0 (>42); GLUCOSE, FASTING 102 MG/DL (74-106); POTASSIUM SERUM 4.6 MMOL/L (3.5-5.1); SODIUM LEVEL 143 MMOL/L (136-145)
== END ==
LOC: M SFHCADAM 07:37
PROVIDERS: ATTEND Urology
DX: N28.89 Other specified disorders of kidney and ureter (principal)

== ENCOUNTER → 2022-11-05 | Outpatient (CLI) | payer MEDICARE ==
[~2022-11-05] MED LIST changes: +ISOVUE-370 76% 100ML VIAL As Ordered ONE
== END ==
LOC: M RAD 10:05
PROVIDERS: ATTEND Urology
DX: N28.89 Other specified disorders of kidney and ureter (principal)
CPT/HCPCS: 74170; Q9967

== ENCOUNTER → 2022-11-11 | Outpatient (CLI) | payer MEDICARE ==
[~2022-11-11] MED LIST changes: -ISOVUE-370 76% 100ML VIAL As Ordered ONE
== END ==
LOC: M ADAMS 08:15
PROVIDERS: ATTEND Physician Assistant Medical
DX: M25.561 Pain in right knee (principal); M76.51 Patellar tendinitis, right knee

== ENCOUNTER → 2022-11-11 | Outpatient (REF) | payer MEDICARE ==
[2022-11-11 13:39] LABS: C REACTIVE PROTEIN QUANTITATIV < 0.40 MG/DL (<1.0)
[2022-11-11 13:43] LABS: CHOLESTEROL LEVEL 156 MG/DL (<200); CHOLESTEROL RISK RATIO 3.22 (<5); HDL CHOLESTEROL 48.4 MG/DL (>40); LDL CHOLESTEROL 86.4 MG/DL (<100); NON-HDL-C 107.6 MG/DL; TRIGLYCERIDES LEVEL 106 MG/DL (<150)
[2022-11-11 13:46] LABS: THYROID STIMULATING HORMONE 2.119 uIU/ML (0.55-4.78)
[2022-11-11 13:47] LABS: TOTAL 25(OH) VITAMIN D 45.2 NG/ML (20.0-100.0)
== END ==
LOC: M SFHCADAM 08:02
PROVIDERS: ATTEND Physician Assistant Medical
DX: M25.561 Pain in right knee (principal); I25.10 Atherosclerotic heart disease of native coronary artery without angina pectoris; R05.1 Acute cough; E78.2 Mixed hyperlipidemia; R73.01 Impaired fasting glucose; M76.51 Patellar tendinitis, right knee

== ENCOUNTER → 2023-04-05 | Outpatient (CLI) | payer MEDICARE | LOC: M PLAIMG 12:41 | PROVIDERS: ATTEND Physician Assistant | DX: J32.0 Chronic maxillary sinusitis (principal); J32.2 Chronic ethmoidal sinusitis ==

== ENCOUNTER → 2023-06-13 | Outpatient (REF) | payer MEDICARE ==
[2023-06-13 18:11] LABS: BLOOD UREA NITROGEN 20 MG/DL (9-23); CALCIUM LEVEL 9.7 MG/DL (8.3-10.6); CARBON DIOXIDE LEVEL 32 MMOL/L (20-31); CHLORIDE LEVEL 105 MMOL/L (98-107); GLOMERULAR FILTRATION RATE > 60.0 (>42); GLUCOSE, FASTING 97 MG/DL (74-106); SODIUM LEVEL 144 MMOL/L (136-145)
== END ==
LOC: M SFHCADAM 14:44
PROVIDERS: ATTEND Urology
DX: N28.89 Other specified disorders of kidney and ureter (principal)

== ENCOUNTER → 2023-06-16 | Outpatient (CLI) | payer MEDICARE ==
[~2023-06-16] MED LIST changes: +ISOVUE-370 76% 100ML VIAL ONE
== END ==
LOC: M PLAIMG 12:34
PROVIDERS: ATTEND Urology
DX: N28.1 Cyst of kidney, acquired (principal); K76.0 Fatty (change of) liver, not elsewhere classified; Z90.49 Acquired absence of other specified parts of digestive tract
CPT/HCPCS: 74170; Q9967

== ENCOUNTER → 2023-06-27 | Outpatient (REF) | payer MEDICARE ==
[~2023-06-27] MED LIST changes: -ISOVUE-370 76% 100ML VIAL ONE; -RAMI1CAP22 PO; +RAMI2.5C42 PO
[2023-06-27 13:12] LABS: ALBUMIN 3.8 G/DL (3.2-5.2); ALKALINE PHOSPHATASE 93 U/L (46-116); ALT/SGPT 30 U/L (7.0-40); AST/SGOT 16 U/L (<34); BILIRUBIN,TOTAL 0.5 MG/DL (0.3-1.2); BLOOD UREA NITROGEN 18 MG/DL (9-23); CARBON DIOXIDE LEVEL 28 MMOL/L (20-31); CHLORIDE LEVEL 107 MMOL/L (98-107); CHOLESTEROL LEVEL 138 MG/DL (<200); CHOLESTEROL RISK RATIO 3.14 (<5); CREATININE FOR GFR 0.67 MG/DL (0.70-1.30); GLOMERULAR FILTRATION RATE > 60.0 (>42); GLUCOSE, FASTING 102 MG/DL (74-106); HDL CHOLESTEROL 43.9 MG/DL (>40); LDL CHOLESTEROL 73.3 MG/DL (<100); NON-HDL-C 94.1 MG/DL; POTASSIUM SERUM 4.3 MMOL/L (3.5-5.1); SODIUM LEVEL 140 MMOL/L (136-145); TOTAL PROTEIN 6.7 G/DL (5.7-8.2); TRIGLYCERIDES LEVEL 104 MG/DL (<150)
[2023-06-27 13:16] LABS: THYROID STIMULATING HORMONE 1.575 uIU/ML (0.55-4.78)
[2023-06-27 13:21] LABS: BASO % 0.5 % (0.0-1.0); EOS # 0.2 10^3/uL (0.0-0.5); EOS % 2.7 % (0.0-3.0); HEMATOCRIT 46.2 % (42.0-52.0); LYMPH # 2.6 10^3/uL (1.5-5.0); MEAN CORPUSCULAR HEMOGLOBIN 31.3 pg (27.0-33.0); MEAN CORPUSCULAR HGB CONC 32.5 g/dl (32.0-36.5); MEAN CORPUSCULAR VOLUME 96.3 fl (80.0-96.0); MONO # 0.5 10^3/uL (0.0-0.8); MONO % 7.9 % (2.0-8.0); NEUTROPHILS % 47.7 % (36.0-66.0); PLATELET COUNT, AUTOMATED 208 10^3/uL (150-450); WHITE BLOOD COUNT 6.4 10^3/uL (4.0-10.0)
[2023-06-27 14:26] LABS: HEMOGLOBIN A1c 5.5 % (4.0-6.0)
== END ==
LOC: M SFHCADAM 08:32
PROVIDERS: ATTEND Physician Assistant Medical
DX: I25.10 Atherosclerotic heart disease of native coronary artery without angina pectoris (principal); E78.2 Mixed hyperlipidemia; R73.01 Impaired fasting glucose; K76.0 Fatty (change of) liver, not elsewhere classified; M25.50 Pain in unspecified joint

== ENCOUNTER → 2023-08-29 | Outpatient (REF) | payer MEDICARE | LOC: M SFHCADAM 12:42 | PROVIDERS: ATTEND Physician Assistant | DX: J00 Acute nasopharyngitis [common cold] (principal) ==

== ENCOUNTER → 2024-06-26 | Outpatient (CLI) | payer MEDICARE ==
[2024-06-26 13:35] LABS: BASO % 0.4 % (0.0-1.0); EOS # 0.2 10^3/uL (0.0-0.5); EOS % 2.5 % (0.0-3.0); HEMATOCRIT 48.6 % (42.0-52.0); HEMOGLOBIN 15.6 g/dl (13.5-17.5); LYMPH # 2.6 10^3/uL (1.5-5.0); MEAN CORPUSCULAR HEMOGLOBIN 31.1 pg (27.0-33.0); MEAN CORPUSCULAR HGB CONC 32.1 g/dl (32.0-36.5); MEAN CORPUSCULAR VOLUME 96.8 fl (80.0-96.0); MONO # 0.6 10^3/uL (0.0-0.8); MONO % 9.4 % (2.0-8.0); NEUTROPHILS # 3.3 10^3/uL (1.5-8.5); NEUTROPHILS % 48.6 % (36.0-66.0); PLATELET COUNT, AUTOMATED 212 10^3/uL (150-450); RED BLOOD COUNT 5.02 10^6/uL (4.30-6.10); WHITE BLOOD COUNT 6.7 10^3/uL (4.0-10.0)
[2024-06-26 14:09] LABS: HEMOGLOBIN A1c 5.2 % (4.0-6.0)
[2024-06-26 14:13] LABS: ALKALINE PHOSPHATASE 94 U/L (40-129); ALT/SGPT 38 U/L (7.0-40); AST/SGOT 22 U/L (<34); BILIRUBIN,TOTAL 0.7 MG/DL (0.3-1.2); BLOOD UREA NITROGEN 18 MG/DL (9-23); CALCIUM LEVEL 9.3 MG/DL (8.3-10.6); CARBON DIOXIDE LEVEL 28 MMOL/L (20-31); CHLORIDE LEVEL 108 MMOL/L (98-107); CHOLESTEROL LEVEL 125 MG/DL (<200); CHOLESTEROL RISK RATIO 2.72 (<5); CREATININE FOR GFR 0.71 MG/DL (0.70-1.30); GLOMERULAR FILTRATION RATE > 90.0 (>42); GLUCOSE, FASTING 103 MG/DL (74-106); HDL CHOLESTEROL 45.9 MG/DL (>40); LDL CHOLESTEROL 62.3 MG/DL (<100); NON-HDL-C 79.1 MG/DL; POTASSIUM SERUM 4.6 MMOL/L (3.5-5.1); SODIUM LEVEL 145 MMOL/L (136-145); TOTAL PROTEIN 7.2 G/DL (5.7-8.2); TRIGLYCERIDES LEVEL 84 MG/DL (<150)
[2024-06-26 14:15] LABS: TOTAL 25(OH) VITAMIN D 63.6 NG/ML (20.0-100.0)
== END ==
LOC: M WUC 08:09
PROVIDERS: ATTEND Physician Assistant Medical
DX: I25.10 Atherosclerotic heart disease of native coronary artery without angina pectoris (principal); E78.2 Mixed hyperlipidemia; R73.01 Impaired fasting glucose; K76.0 Fatty (change of) liver, not elsewhere classified; Z87.891 Personal history of nicotine dependence; Z28.21 Immunization not carried out because of patient refusal; Z80.8 Family history of malignant neoplasm of other organs or systems; Z88.0 Allergy status to penicillin; Z79.82 Long term (current) use of aspirin; Z80.7 Family history of other malignant neoplasms of lymphoid, hematopoietic and related tissues

== ENCOUNTER → 2024-09-25 | Outpatient (CLI) | payer MEDICARE | LOC: M ADAMS 07:34 | PROVIDERS: ATTEND Physician Assistant Medical | DX: M25.562 Pain in left knee (principal); M17.12 Unilateral primary osteoarthritis, left knee ==